=== PATIENT | female | born 1950 | race Caucasian/White ===

== ENCOUNTER 2021-04-01 18:34 | Emergency (ER) | payer MEDICARE, MEDICAID ==
[~2021-04-01] VITALS: Ht 167.6 cm; Wt 74.4 kg
[~2021-04-01 18:34] MED LIST: ALBU8.5H8 IH; ASPI-1169 PO; BENZ0.5T43 PO; CITA20TA16 PO; CLON0.3T PO; GABA-534 PO; INSU100V27 SQ; INSU100V7 SQ; ISOS60TA72 PO; METF-440 PO; MIRT-74 PO; NIFE60TA2 PO; SIMV-49 PO; TRAZ-182 PO; ZIPR40CA2 PO
[2021-04-01 18:39] VITALS: BP 101/43
--- NOTE | 2021-04-01 18:42 | NUR ---
TO ER BED 11, AMITA FROM [facility] C/O BRUISE ON THE LEFT SIDE OF THE FACE S/P GLF LAST NIGHT, AAOX2, BREATHING EVEN AND NON LABORED, DENIES PAIN ON OTHER BODY PART, CONNECTED TO MONITOR, AWAITING MD OSORIO
--- NOTE | 2021-04-01 19:12 | NUR ---
DR YADAV AT BEDSIDE FOR EVAL
--- NOTE | 2021-04-01 19:16 | NUR ---
URINE COLLECTED AND SENT TO LAB
[2021-04-01 20:09] LABS: BASOPHILS % (AUTO) 0.8 % (0.0-2.0); EOSINOPHILS % (AUTO) 2.5 % (0.0-6.0); HEMATOCRIT 26 % (33-45); HEMOGLOBIN 8.6 g/dL (11.5-14.8); LYMPHOCYTES # (AUTO) 1.2 K/uL (0.8-4.8); LYMPHOCYTES % (AUTO) 35.1 % (20.0-44.0); MEAN CORPUSCULAR HGB CONC 33 g/dl (31.0-36.0); MEAN CORPUSCULAR VOLUME 90 fL (82-100); MONOCYTES # (AUTO) 0.6 K/uL (0.1-1.30); MONOCYTES % (AUTO) 17.2 % (2.0-12.0); NEUTROPHILS # (AUTO) 1.6 K/uL (1.8-8.9); NEUTROPHILS % (AUTO) 44.4 % (43.0-81.0); PLATELET COUNT (AUTO) 172 K/uL (150-450); RED BLOOD CELL COUNT(AUTO) 2.87 MIL/uL (4.0-5.2); WHITE BLOOD COUNT (AUTO) 3.5 K/uL (4.3-11.0)
[2021-04-01 20:24] LABS: EOSINOPHILS % (MANUAL) 1 % (0-4); LYMPHOCYTES % (MANUAL) 22 % (16-48); MONOCYTES % (MANUAL) 12 % (0-11.0); NEUTROPHILS % (MANUAL) 65 (42-76)
[2021-04-01 20:42] LABS: CALCIUM, SERUM 8.4 mg/dL (8.5-10.1); CARBON DIOXIDE 32 mmol/L (21-32); CHLORIDE 98 mmol/L (98-107); CREATININE 3.8 mg/dL (0.6-1.3); GLUCOSE 130 mg/dL (74-106); POTASSIUM 3.6 mmol/L (3.5-5.1); SODIUM SERUM 136 mmol/L (136-145); UREA NITROGEN, BLOOD 17 mg/dL (7-18)
--- NOTE | 2021-04-01 21:42 | NUR ---
[facility] WILL TRANSPORT PT BACK TO FACILITY IN 90-120 MINUTES.
--- NOTE | 2021-04-01 22:09 | NUR ---
REPORT GIVEN TO NURSE SKY AT [facility]
--- NOTE | 2021-04-01 23:55 | NUR ---
REPORT GIVEN TO [facility] EMT FOR PT TO TRANSFER TO [facility]
== END 2021-04-02 ==
LOC: ER 18:41
DX: S02.40DA Maxillary fracture, left side, initial encounter for closed fracture (principal); G40.909 Epilepsy, unspecified, not intractable, without status epilepticus; F32.A Depression, unspecified; I13.2 Hypertensive heart and chronic kidney disease with heart failure and with stage 5 chronic kidney disease, or end stage renal disease; E11.22 Type 2 diabetes mellitus with diabetic chronic kidney disease; N18.6 End stage renal disease; I50.9 Heart failure, unspecified; Z99.2 Dependence on renal dialysis; Z86.73 Personal history of transient ischemic attack (TIA), and cerebral infarction without residual deficits; Z79.899 Other long term (current) drug therapy; Z79.82 Long term (current) use of aspirin; Z79.84 Long term (current) use of oral hypoglycemic drugs; Z79.4 Long term (current) use of insulin; W06.XXXA Fall from bed, initial encounter; Y93.89 Activity, other specified; Y92.89 Other specified places as the place of occurrence of the external cause; Y99.8 Other external cause status
CPT/HCPCS: 36415; 70450-TC; 70486-TC; 71045-TC; 72125-TC; 80048-TC; 84484-TC; 85025-TC

== ENCOUNTER 2021-06-23 03:47 | Inpatient (IN) | payer MEDICARE, MEDICAID ==
[~2021-06-23] VITALS: Ht 162.6 cm; Wt 67.6 kg
[2021-06-23 05:42] LABS: BASOPHILS % (AUTO) 0.5 % (0.0-2.0); EOSINOPHILS % (AUTO) 2.8 % (0.0-6.0); HEMATOCRIT 34 % (33-45); LYMPHOCYTES % (AUTO) 12.4 % (20.0-44.0); MEAN CORPUSCULAR HGB CONC 32 g/dl (31.0-36.0); MEAN CORPUSCULAR VOLUME 90 fL (82-100); MONOCYTES # (AUTO) 0.9 K/uL (0.1-1.30); MONOCYTES % (AUTO) 10.8 % (2.0-12.0); NEUTROPHILS # (AUTO) 6.1 K/uL (1.8-8.9); NEUTROPHILS % (AUTO) 73.5 % (43.0-81.0); PLATELET COUNT (AUTO) 163 K/uL (150-450); RED BLOOD CELL COUNT(AUTO) 3.77 MIL/uL (4.0-5.2); WHITE BLOOD COUNT (AUTO) 8.3 K/uL (4.3-11.0)
[2021-06-23 05:50] LABS: ALANINE AMINOTRANSFERASE 27 U/L (12-78); ALBUMIN 3.8 g/dL (3.4-5.0); ALKALINE PHOSPHATASE 162 U/L (46-116); ASPARTATE AMINOTRANSFERASE 34 U/L (15-37); BILIRUBIN,DIRECT 0.2 mg/dL (0.0-0.2); BILIRUBIN,TOTAL 0.5 mg/dL (0.2-1.0); CALCIUM, SERUM 8.1 mg/dL (8.5-10.1); CARBON DIOXIDE 28 mmol/L (21-32); CHLORIDE 95 mmol/L (98-107); CREATININE 6.1 mg/dL (0.6-1.3); GLUCOSE 154 mg/dL (74-106); SODIUM SERUM 133 mmol/L (136-145); TOTAL PROTEIN, SERUM 7.9 g/dL (6.4-8.2); UREA NITROGEN, BLOOD 45 mg/dL (7-18)
[2021-06-23 05:53] LABS: POTASSIUM 6.3 mmol/L (3.5-5.1)
[2021-06-23] MEDS ORDERED: FUROSEMIDE 20 MG/2 ML VIAL ONE (05:58)
[2021-06-23] MEDS ORDERED: DEXTROSE 50%-WATER 50 ML DISP.SYRIN ONE (05:59)
[2021-06-23] MEDS ORDERED: SODIUM BICARBONATE SYR 50 MEQ/50 ML DISP.SYRIN ONE (05:59)
[2021-06-23] MEDS ORDERED: CALCIUM CHLORIDE 1,000 MG/10 ML DISP.SYRIN ONE (05:59)
[2021-06-23] MEDS ORDERED: INSULIN REGULAR, HUMAN 100 UNIT/ML 10 ML VIAL IV ONE (06:00)
[2021-06-23] MEDS ORDERED: ALBUTEROL FS 2.5 MG/3 ML VIAL.NEB NEB ONE (06:00)
[2021-06-23] MEDS ORDERED: CALCIUM CHLORIDE 1,000 MG/10 ML DISP.SYRIN IV ONE (06:00)
[2021-06-23] MEDS ORDERED: FUROSEMIDE 40 MG/4 ML VIAL IV ONE (06:00)
[2021-06-23] MEDS ORDERED: CEFEPIME 1 GM in IV D5W 50 ML IV ONE (06:00)
[2021-06-23] MEDS ORDERED: DEXTROSE 50%-WATER 50 ML DISP.SYRIN IV ONE (06:00)
[2021-06-23] MEDS ORDERED: SODIUM BICARBONATE SYR 50 MEQ/50 ML DISP.SYRIN IV ONE (06:00)
[2021-06-23] MEDS ORDERED: ALBUTEROL FS 2.5 MG/3 ML VIAL.NEB ONE (06:03)
[2021-06-23] MEDS ORDERED: CEFEPIME 1 GM VIAL ONE (06:16)
[2021-06-23] MEDS ORDERED: ALBUTEROL FS 2.5 MG/3 ML VIAL.NEB NEB PRN (06:30)
[2021-06-23] MEDS ORDERED: IPRATROPIUM NEB FS 0.5 MG/2.5 ML AMPUL.NEB NEB PRN (06:30)
[2021-06-23] MEDS ORDERED: CLONIDINE PATCH TD (07:37)
[2021-06-23] MEDS ORDERED: ATOR40TA PO (07:37)
[2021-06-23] MEDS ORDERED: CRAN400C PO (07:37)
[2021-06-23] MEDS ORDERED: ZINC220T4 PO (07:37)
[2021-06-23] MEDS ORDERED: CALC-883 PO (07:37)
[2021-06-23] MEDS ORDERED: PANT40TA49 PO (07:37)
[2021-06-23] MEDS ORDERED: FERR325T23 PO (07:37)
[2021-06-23] MEDS ORDERED: ARIP15TA3 PO (07:37)
[2021-06-23] MEDS ORDERED: MONT10TA22 PO (07:37)
[2021-06-23] MEDS ORDERED: APIX5TAB PO (07:37)
[2021-06-23] MEDS ORDERED: ASCO500C17 PO (07:37)
[2021-06-23] MEDS ORDERED: FOLI0.8C PO (07:37)
[2021-06-23] MEDS ORDERED: VIT1TABL46 PO (07:37)
[2021-06-23] MEDS ORDERED: DOCU-141 PO (07:37)
[2021-06-23] MEDS ORDERED: INSU100V42 (07:37)
[2021-06-23] MEDS ORDERED: LISI20TA30 PO (07:37)
[2021-06-23] MEDS ORDERED: CRAN3875 PO (07:37)
[2021-06-23] MEDS ORDERED: METO50TA16 PO (07:37)
[2021-06-23] MEDS ORDERED: SEVE800T8 PO (07:37)
[2021-06-23] MEDS ORDERED: DEXTROSE 50%-WATER 50 ML DISP.SYRIN IV PRN (08:00)
[2021-06-23] MEDS ORDERED: HOME MED MISCELLANEOUS XX SCH (08:30)
[2021-06-23] MEDS ORDERED: HEPARIN SODIUM, PORCINE 5000 UNITS/1 ML VIAL SQ SCH (09:00)
[2021-06-23] MEDS: NIFEdipine XL (30MG) 30 MG TAB PO SCH ×2 (09:00→18:01)
[2021-06-23] MEDS: ARIPIPRAZOLE 5 MG TABLET PO SCH (09:38)
[2021-06-23] MEDS: VIT B CMPLX 3/FA/VIT C/BIOTIN 1 TAB TABLET PO SCH (09:38)
[2021-06-23] MEDS: ASPIRIN 81 MG TAB.CHEW PO SCH (09:44)
[2021-06-23] MEDS: ZINC SULFATE 220 MG CAPSULE PO SCH (09:44)
[2021-06-23] MEDS: CALCIUM CARB 250MG /VITAMIN D 1 UDTAB PO SCH (09:46)
[2021-06-23] MEDS: APIXABAN 5 MG TABLET PO SCH ×2 (09:46→18:00)
[2021-06-23] MEDS: FOLIC ACID 1 MG TABLET PO SCH (09:46)
[2021-06-23] MEDS: DOCUSATE SODIUM 100 MG CAPSULE PO SCH ×2 (09:47→18:01)
[2021-06-23] MEDS: PANTOPRAZOLE 40 MG TABLET.DR PO SCH (09:47)
[2021-06-23] MEDS: FERROUS SULFATE (325 MG) 325 MG/TAB TABLET PO SCH (09:47)
[2021-06-23] MEDS: GABAPENTIN 300 MG CAPSULE PO SCH ×3 (09:47→18:00)
[2021-06-23] MEDS: ASCORBIC ACID 500 MG TABLET PO SCH (09:48)
[2021-06-23] MEDS: BLOOD SUGAR DIAGNOSTIC 1 EACH STRIP IN SCH ×3 (11:51→21:36)
[2021-06-23 12:00] VITALS: BP 119/65
[2021-06-23 12:26] VITALS: BP 119/65
[2021-06-23] MEDS: SEVELAMER CARBONATE 800 MG TABLET PO SCH ×2 (13:29→18:01)
[2021-06-23] MEDS ORDERED: CLONIDINE HCL 0.3 MG/24H PTWK 1 EA PATCH TD SCH (15:00)
[2021-06-23 16:00] VITALS: BP 129/65
[2021-06-23] MEDS: INSULIN REGULAR, HUMAN 100 UNIT/ML 3 ML VIAL SQ PRN ×2 (17:59→21:37)
[2021-06-23] MEDS ORDERED: SIMVASTATIN 40 MG TABLET PO SCH (18:00)
[2021-06-23] MEDS ORDERED: SIMVASTATIN 20 MG TABLET PO SCH (18:31)
[2021-06-23] MEDS: IPRATROPIUM NEB FS 0.5 MG/2.5 ML AMPUL.NEB NEB SCH (19:56)
[2021-06-23 20:00] VITALS: BP 148/79
[2021-06-23] MEDS ORDERED: ACETAMINOPHEN 325 MG TABLET PO PRN (20:00)
[2021-06-23] MEDS: MONTELUKAST SODIUM (10MG) 10 MG TABLET PO SCH (21:22)
[2021-06-23] MEDS: TRAZODONE 50 MG TABLET PO SCH (21:23)
[2021-06-23] MEDS: SIMVASTATIN 20 MG TABLET PO SCH (21:23)
[2021-06-23] MEDS ORDERED: ATORVASTATIN 40 MG TABLET PO SCH (22:00)
[2021-06-23 22:15] VITALS: BP 148/79
[2021-06-24] VITALS: BP 133/67
[2021-06-24] MEDS: IPRATROPIUM NEB FS 0.5 MG/2.5 ML AMPUL.NEB NEB SCH ×4 (00:31→19:02)
[2021-06-24 04:00] VITALS: BP 120/55
[2021-06-24] MEDS: CEFEPIME 1 GM in IV D5W 50 ML IV SCH (06:05)
[2021-06-24 07:35] LABS: BASOPHILS % (AUTO) 0.4 % (0.0-2.0); EOSINOPHILS % (AUTO) 4.9 % (0.0-6.0); HEMATOCRIT 28 % (33-45); LYMPHOCYTES # (AUTO) 1.2 K/uL (0.8-4.8); LYMPHOCYTES % (AUTO) 26.6 % (20.0-44.0); MEAN CORPUSCULAR HGB CONC 32 g/dl (31.0-36.0); MEAN CORPUSCULAR VOLUME 90 fL (82-100); MONOCYTES # (AUTO) 0.7 K/uL (0.1-1.30); MONOCYTES % (AUTO) 15.2 % (2.0-12.0); NEUTROPHILS # (AUTO) 2.4 K/uL (1.8-8.9); NEUTROPHILS % (AUTO) 52.9 % (43.0-81.0); PLATELET COUNT (AUTO) 126 K/uL (150-450); WHITE BLOOD COUNT (AUTO) 4.6 K/uL (4.3-11.0)
[2021-06-24] MEDS: BLOOD SUGAR DIAGNOSTIC 1 EACH STRIP IN SCH ×4 (07:42→22:46)
[2021-06-24] MEDS: SEVELAMER CARBONATE 800 MG TABLET PO SCH ×3 (07:43→17:15)
[2021-06-24 08:00] LABS: THYROID STIMULATING HORMONE 0.739 uIU/mL (0.358-3.74)
[2021-06-24 08:08] VITALS: BP 128/62
[2021-06-24 08:09] LABS: ALBUMIN 2.8 g/dL (3.4-5.0); BILIRUBIN,TOTAL 0.4 mg/dL (0.2-1.0); CALCIUM, SERUM 8.2 mg/dL (8.5-10.1); CREATININE 5.4 mg/dL (0.6-1.3); PHOSPHORUS 4.2 mg/dL (2.5-4.9); POTASSIUM 4.6 mmol/L (3.5-5.1)
[2021-06-24] MEDS: ASPIRIN 81 MG TAB.CHEW PO SCH (08:15)
[2021-06-24] MEDS: GABAPENTIN 300 MG CAPSULE PO SCH ×3 (08:15→16:30)
[2021-06-24] MEDS: ZINC SULFATE 220 MG CAPSULE PO SCH (08:15)
[2021-06-24] MEDS: ARIPIPRAZOLE 5 MG TABLET PO SCH (08:15)
[2021-06-24] MEDS: ASCORBIC ACID 500 MG TABLET PO SCH (08:16)
[2021-06-24] MEDS: PANTOPRAZOLE 40 MG TABLET.DR PO SCH (08:16)
[2021-06-24] MEDS: FOLIC ACID 1 MG TABLET PO SCH (08:16)
[2021-06-24] MEDS: DOCUSATE SODIUM 100 MG CAPSULE PO SCH ×2 (08:16→16:30)
[2021-06-24] MEDS: VIT B CMPLX 3/FA/VIT C/BIOTIN 1 TAB TABLET PO SCH (08:16)
[2021-06-24] MEDS: CALCIUM CARB 250MG /VITAMIN D 1 UDTAB PO SCH (08:16)
[2021-06-24] MEDS: FERROUS SULFATE (325 MG) 325 MG/TAB TABLET PO SCH (08:16)
[2021-06-24] MEDS: NIFEdipine XL (30MG) 30 MG TAB PO SCH ×2 (08:16→16:30)
[2021-06-24] MEDS: APIXABAN 5 MG TABLET PO SCH ×2 (09:24→16:31)
[2021-06-24] MEDS: INSULIN REGULAR, HUMAN 100 UNIT/ML 3 ML VIAL SQ PRN ×3 (11:35→22:47)
[2021-06-24 12:00] VITALS: BP 125/64
[2021-06-24 16:00] VITALS: BP 125/56
[2021-06-24 20:00] VITALS: BP 127/58
[2021-06-24] MEDS: TRAZODONE 50 MG TABLET PO SCH (21:59)
[2021-06-24] MEDS: SIMVASTATIN 20 MG TABLET PO SCH (21:59)
[2021-06-24] MEDS: MONTELUKAST SODIUM (10MG) 10 MG TABLET PO SCH (22:00)
[2021-06-25] VITALS: BP 119/59
[2021-06-25] MEDS: IPRATROPIUM NEB FS 0.5 MG/2.5 ML AMPUL.NEB NEB SCH ×4 (01:02→20:11)
[2021-06-25 04:00] VITALS: BP 136/65
[2021-06-25] MEDS: CEFEPIME 1 GM in IV D5W 50 ML IV SCH (06:12)
[2021-06-25] MEDS: BLOOD SUGAR DIAGNOSTIC 1 EACH STRIP IN SCH ×4 (07:53→21:32)
[2021-06-25 08:00] VITALS: BP 122/53
[2021-06-25] MEDS: SEVELAMER CARBONATE 800 MG TABLET PO SCH ×3 (08:55→17:02)
[2021-06-25] MEDS: NIFEdipine XL (30MG) 30 MG TAB PO SCH ×2 (09:00→16:31)
[2021-06-25] MEDS: DOCUSATE SODIUM 100 MG CAPSULE PO SCH ×2 (09:57→16:30)
[2021-06-25] MEDS: VIT B CMPLX 3/FA/VIT C/BIOTIN 1 TAB TABLET PO SCH (09:57)
[2021-06-25] MEDS: ARIPIPRAZOLE 5 MG TABLET PO SCH (09:57)
[2021-06-25] MEDS: PANTOPRAZOLE 40 MG TABLET.DR PO SCH (09:58)
[2021-06-25] MEDS: ASPIRIN 81 MG TAB.CHEW PO SCH (09:58)
[2021-06-25] MEDS: FOLIC ACID 1 MG TABLET PO SCH (09:58)
[2021-06-25] MEDS: GABAPENTIN 300 MG CAPSULE PO SCH ×3 (09:58→16:33)
[2021-06-25] MEDS: FERROUS SULFATE (325 MG) 325 MG/TAB TABLET PO SCH (09:58)
[2021-06-25] MEDS: ASCORBIC ACID 500 MG TABLET PO SCH (09:58)
[2021-06-25] MEDS: CALCIUM CARB 250MG /VITAMIN D 1 UDTAB PO SCH (09:58)
[2021-06-25] MEDS: APIXABAN 5 MG TABLET PO SCH ×2 (10:00→16:33)
[2021-06-25] MEDS: ZINC SULFATE 220 MG CAPSULE PO SCH (10:06)
[2021-06-25 12:00] VITALS: BP 126/53
[2021-06-25 16:00] VITALS: BP 138/62
[2021-06-25 20:00] VITALS: BP 127/56
[2021-06-25] MEDS: TRAZODONE 50 MG TABLET PO SCH (21:25)
[2021-06-25] MEDS: SIMVASTATIN 20 MG TABLET PO SCH (21:25)
[2021-06-25] MEDS: MONTELUKAST SODIUM (10MG) 10 MG TABLET PO SCH (21:25)
[2021-06-26] VITALS: BP 134/66
[2021-06-26] MEDS: IPRATROPIUM NEB FS 0.5 MG/2.5 ML AMPUL.NEB NEB SCH ×3 (01:31→13:35)
[2021-06-26 04:00] VITALS: BP 125/60
[2021-06-26 08:00] VITALS: BP 144/70
[2021-06-26] MEDS: FOLIC ACID 1 MG TABLET PO SCH (08:45)
[2021-06-26] MEDS: CEFEPIME 1 GM in IV D5W 50 ML IV SCH (08:45)
[2021-06-26] MEDS: ARIPIPRAZOLE 5 MG TABLET PO SCH (08:45)
[2021-06-26] MEDS: VIT B CMPLX 3/FA/VIT C/BIOTIN 1 TAB TABLET PO SCH (08:45)
[2021-06-26] MEDS: GABAPENTIN 300 MG CAPSULE PO SCH ×3 (08:45→18:02)
[2021-06-26] MEDS: NIFEdipine XL (30MG) 30 MG TAB PO SCH ×2 (08:46→18:03)
[2021-06-26] MEDS: ASCORBIC ACID 500 MG TABLET PO SCH (08:46)
[2021-06-26] MEDS: ASPIRIN 81 MG TAB.CHEW PO SCH (08:46)
[2021-06-26] MEDS: PANTOPRAZOLE 40 MG TABLET.DR PO SCH (08:46)
[2021-06-26] MEDS: ZINC SULFATE 220 MG CAPSULE PO SCH (08:46)
[2021-06-26] MEDS: FERROUS SULFATE (325 MG) 325 MG/TAB TABLET PO SCH (08:46)
[2021-06-26] MEDS: CALCIUM CARB 250MG /VITAMIN D 1 UDTAB PO SCH (08:46)
[2021-06-26] MEDS: BLOOD SUGAR DIAGNOSTIC 1 EACH STRIP IN SCH ×3 (08:48→18:12)
[2021-06-26] MEDS: DOCUSATE SODIUM 100 MG CAPSULE PO SCH ×2 (08:48→17:00)
[2021-06-26] MEDS: APIXABAN 5 MG TABLET PO SCH ×2 (08:48→18:05)
[2021-06-26] MEDS: SEVELAMER CARBONATE 800 MG TABLET PO SCH ×3 (08:49→18:02)
[2021-06-26 12:00] VITALS: BP 135/58
[2021-06-26] MEDS: INSULIN REGULAR, HUMAN 100 UNIT/ML 3 ML VIAL SQ PRN ×2 (12:35→18:12)
[2021-06-26 16:00] VITALS: BP 143/61
[2021-06-26 18:03] VITALS: BP 143/61
== END 2021-06-26 19:04 | DRG 194 ==
LOC: ER 03:56 → TELE1 07:52 → TELE-TD 06-26 03:53 → TELE1 06-26 08:21
PROVIDERS: ADMIT Nurse Practitioner Acute Care; ATTEND Nurse Practitioner Acute Care
PROC: 5A1D70Z Performance of Urinary Filtration, Intermittent, Less than 6 Hours Per Day (ICD-10-PCS; principal; 2021-06-23)
DX: I13.2 Hypertensive heart and chronic kidney disease with heart failure and with stage 5 chronic kidney disease, or end stage renal disease (principal); J15.9 Unspecified bacterial pneumonia; N18.6 End stage renal disease; E87.1 Hypo-osmolality and hyponatremia; F29 Unspecified psychosis not due to a substance or known physiological condition; J44.1 Chronic obstructive pulmonary disease with (acute) exacerbation; I50.33 Acute on chronic diastolic (congestive) heart failure; E11.22 Type 2 diabetes mellitus with diabetic chronic kidney disease; E78.5 Hyperlipidemia, unspecified; E87.5 Hyperkalemia; F32.A Depression, unspecified; G31.84 Mild cognitive impairment of uncertain or unknown etiology; G40.909 Epilepsy, unspecified, not intractable, without status epilepticus; Z79.4 Long term (current) use of insulin; Z79.82 Long term (current) use of aspirin; Z86.73 Personal history of transient ischemic attack (TIA), and cerebral infarction without residual deficits; Z87.891 Personal history of nicotine dependence; Z91.14 Patient's other noncompliance with medication regimen; Z99.2 Dependence on renal dialysis; G89.29 Other chronic pain; E66.9 Obesity, unspecified; Z68.25 Body mass index [BMI] 25.0-25.9, adult; R00.1 Bradycardia, unspecified; Z79.84 Long term (current) use of oral hypoglycemic drugs; J45.909 Unspecified asthma, uncomplicated; Z20.822 Contact with and (suspected) exposure to COVID-19
CPT/HCPCS: 36415; 71045-TC; 80048-TC; 80053-TC; 80076-TC; 82962-TC; 83605-TC; 83735-TC; 83880; 84100-TC; 84443-TC; 84484-TC; 85025-TC; 85730-TC; 86706; 87040-TC; 87081-TC; 87340; 90935-TC; 94799-TC; 97116-TC; 97530-TC; A6403; C9803; G0378; J0692; J1815; J1940; J3490; J7030; J7050; J7060